=== PATIENT | male | born 1965 | race Caucasian/White ===

== ENCOUNTER 2017-09-12 21:22 | Emergency (ER) | payer OTHER ==
[2017-09-12 21:29] VITALS: BP 145/93; PULSE 66; RESP 18; TEMP 98.2
[2017-09-12] MEDS ORDERED: DIPH,PERTUS(ACELL)TETVAC-LF 0.5 ML VIAL IM ONE (21:55)
--- NOTE | 2017-09-12 21:59 | ED ---
Wound/Laceration HPI - General Chief Complaint: Wound/Laceration Stated Complaint: fish hook in hands Time Seen by Provider: 09/12/17 21:55 Source: patient, RN notes reviewed, old records reviewed Mode of arrival: ambulatory Limitations: physical limitation - History of Present Illness Initial Comments: Patient's 52-year-old male chief complaint of fishhook within the both of his hands. Patient reports that he was trying to fish and the fishhook caught within the right thenar erythematous as well as the left second digit. Patient states that he could not remove it himself. Patient denies any other symptoms. His tetanus shot is not up-to-date. - Related Data Home Medications Medication Instructions Recorded Confirmed Hydrocodone/Acetaminophen [[place] 1 tab PO Q6H PRN 09/12/17 09/12/17 10-325] Lisinopril [Zestril] 10 mg PO DAILY 09/12/17 09/12/17 Previous Rx's Medication Instructions Recorded Sulfamethoxazole/Trimethoprim 1 each PO BID #20 tablet 09/12/17 [Bactrim DS 800-160 mg] Allergies Allergy/AdvReac Type Severity Reaction Status Date / Time Penicillins Allergy Anaphylaxis Verified 09/12/17 21:29 Review of Systems ROS Statement: Those systems with pertinent positive or pertinent negative responses have been documented in the HPI. ROS Other: All systems not noted in ROS Statement are negative. Past Medical History Past Medical History: Hyperlipidemia, Hypertension History of Any Multi-Drug Resistant Organisms: None Reported Additional Past Surgical History / Comment(s): right thigh Past Psychological History: No Psychological Hx Reported Smoking Status: Current every day smoker Past Alcohol Use History: Rare Past Drug Use History: None Reported General Exam - General Exam Comments Initial Comments: This patient's 52-year-old male. Alert and oriented. No significant distress. Limitations: physical limitation General appearance: alert, in no apparent distress Head exam: Present: atraumatic, normocephalic, normal inspection Eye exam: Present: normal appearance, PERRL, EOMI. Absent: scleral icterus, conjunctival injection, periorbital swelling ENT exam: Present: normal exam, mucous membranes moist Neck exam: Present: normal inspection. Absent: tenderness, meningismus, lymphadenopathy Respiratory exam: Present: normal lung sounds bilaterally. Absent: respiratory distress, wheezes, rales, rhonchi, stridor Cardiovascular Exam: Present: regular rate, normal rhythm, normal heart sounds. Absent: systolic murmur, diastolic murmur, rubs, gallop, clicks Right Hand L/R Front: 1 - other (fishhook) 2 - other (fishook) Neuro motor exam: Present: thumb opposition intact, thumb IP flexion intact, thumb adduction intact, fingers 2-5 abduction intact Neurosensory exam: Present: 2-point discrimination, radial nerve intact, ulnar nerve intact, median nerve intact Vascular: Present: normal capillary refill Neurological exam: Present: alert, oriented X3, CN II-XII intact Psychiatric exam: Present: normal affect, normal mood Skin exam: Present: warm, dry, intact, normal color. Absent: rash Course Vital Signs 09/12/17 21:25 Temperature 98.2 F Pulse Rate 66 Respiratory 18 Rate Blood Pressure 145/93 O2 Sat by Pulse 99 Oximetry Medical Decision Making - Medical Decision Making 42-year-old male presents raise or tingling of fishhook in both of his hands. It is a 3 pronged fish hook. One is with th right thenar eminence of the seconds in the left second digit. I a cleanse the hands with Betadine. Instilled lidocaine in the area. There able to do through and through method and clip off the end of the marko. We did repeat an x-ray after the fishhook was removed and both hands. No evidence of retained foreign body or bony normalities. I will put the Patient on antibiotics for infection prevention. Discussed using warm soaks. I also discussed keeping the Patient a tetanus shot. All questions answered as were discussed. - Radiology Data Radiology results: pending, image reviewed Patient had x-rays on inserting foreign body. No evidence of fracture. Disposition Clinical Impression: Ladd injury to finger Disposition: HOME SELF-CARE Condition: Good Instructions: Puncture Wound (ED) Additional Instructions: Monitor for any infection. Take antibiotics as prescribed. Patient should soak hands frequently. Prescriptions: Sulfamethoxazole/Trimethoprim [Bactrim DS 800-160 mg] 1 each PO BID #20 tablet Is patient prescribed a controlled substance at d/c from ED?: No When asked, does pt state using other controlled substances?: No If prescribed controlled substance>3 days was MAPS reviewed?: No If opioid is for acute pain is fill amount 7 days or less?: No If Rx opioid, was Start Talking consent form obtained?: No Referrals: Kai Ibarra Jr, [Primary Care Provider] - 1-2 days Time of Disposition: 21:56
--- NOTE | 2017-09-12 23:09 | XR ---
EXAMINATION TYPE: XR hand limited bilateral DATE OF EXAM: 09/12/2017 COMPARISON: NONE HISTORY: Hand pain. [place] in both hands. TECHNIQUE: 3 views each hand FINDINGS: I see no fracture nor dislocation. Joint spaces are normal. There are no erosions. There is no sign of radiopaque foreign body. IMPRESSION: Negative bilateral hand exam. No evidence of foreign body. Minimal spurring noted at the right third MP joint.
== END 2017-09-12 22:29 | disposition home or self-care (01) ==
LOC: EC 21:22
DX: S69.91XA Unspecified injury of right wrist, hand and finger(s), initial encounter (principal); S69.92XA Unspecified injury of left wrist, hand and finger(s), initial encounter; I10 Essential (primary) hypertension; F17.200 Nicotine dependence, unspecified, uncomplicated; Z79.899 Other long term (current) drug therapy; Z88.0 Allergy status to penicillin; Z23 Encounter for immunization; W22.8XXA Striking against or struck by other objects, initial encounter; Y93.89 Activity, other specified; Y92.89 Other specified places as the place of occurrence of the external cause
CPT/HCPCS: 90471; 90715; 99284

== ENCOUNTER → 2017-12-03 | Outpatient (CLI) | payer OTHER ==
--- NOTE | 2017-12-03 14:18 | MR ---
EXAMINATION TYPE: MR knee RT wo con DATE OF EXAM: 12/03/2017 COMPARISON: X-ray 11/25/2017 HISTORY: Right knee pain TECHNIQUE: Multiplanar, multisequence imaging of the right knee is performed without IV contrast. FINDINGS: MEDIAL MENISCUS: There is PseudoExtrusion of the medial meniscus with grade 3 abnormal signal involvi ng the body and posterior horn compatible with meniscal tear. LATERAL MENISCUS: There is linear abnormal signal involving the posterior horn extending to the artic ular surface compatible simple linear tear. CRUCIATE LIGAMENTS: Posterior cruciate ligament has a normal appearance. The anterior cruciate ligame nt is not visualized correlate for history of previous ACL tear. COLLATERAL LIGAMENTS: The medial collateral ligament and lateral collateral ligament complex are inta ct. There is a grade 1 MCL sprain. EXTENSOR MECHANISM: Visualized quadriceps and patellar tendons are intact. EFFUSION: There is a small amount of fluid in the suprapatellar bursa. There is diffuse abnormal sig nal involving the infrapatellar Hoffa fat pad. A rounded area of abnormal signal suggest a osseous lo ose body. Measures approximately 1.6 cm and is believed to be present on the outside x-ray submitted. . POPLITEAL CYST: There is a 1.7 x 1 x 5 cm popliteal fossa cyst.. TRICOMPARTMENT SPACES: There is marked narrowing of the joint spaces of the medial and lateral compar tment with most marked findings seen involving the medial compartment. Hypertrophic spurring is noted . Marrow edema involving the medial and lateral tibial plateau likely is reactive secondary to arthro alyse. There is loss of articular cartilage and thinning of both the medial and lateral femoral artic ular surface. This likely is post arthritic. BONE MARROW SIGNAL: Signal alteration involving the medial and lateral tibial plateaus likely is reac tive secondary to post arthritic changes. IMPRESSION: 1. Severe osteoarthritis with chondromalacia involving the medial and lateral femoral articular carti dyllan. 2. PseudoExtrusion of the medial meniscus with complex tear involving the body and posterior horn lik arnoldo degenerative. 3. Simple linear tear posterior horn lateral meniscus. 4. Nonvisualization of the ACL correlate for chronic ACL tear. 5. Diffuse edema within Hoffa's fat pad with a 1.6 cm area of abnormal signal which has an oval confi guration and suspicious for a oval ossified density or loose body. 6. Grade 1 MCL sprain. 7. 1.7 x 1 x 5 cm popliteal fossa cyst
== END | disposition home or self-care (01) ==
LOC: RADMRIMAIN 11:45
PROVIDERS: ATTEND Orthopaedic Surgery
DX: M17.11 Unilateral primary osteoarthritis, right knee (principal); S83.231A Complex tear of medial meniscus, current injury, right knee, initial encounter; S83.281A Other tear of lateral meniscus, current injury, right knee, initial encounter; S83.411A Sprain of medial collateral ligament of right knee, initial encounter; M94.261 Chondromalacia, right knee

== ENCOUNTER 2018-03-10 07:01 | Day surgery (SDC) | payer OTHER ==
[2018-03-07 15:05] VITALS: BMI 24.2
--- NOTE | 2018-03-09 16:19 | HP ---
HISTORY AND PHYSICAL DATE OF SURGERY: 03/10/2018 Humphrey Elmore is a 53-year-old patient seen with progressive right knee pain. We discussed treatment options. He elected to proceed with right knee arthroscopy. Consent was obtained. PAST MEDICAL HISTORY: Hypertension, hyperlipidemia. PAST SURGICAL HISTORY: Noncontributory. DAILY MEDICATIONS: Antihypertensive. ALLERGIES: NONE. SOCIAL HISTORY: Smokes one pack of cigarettes daily. PHYSICAL EVALUATION OF THE RIGHT KNEE: Range of motion is negative 2/3 to 110 degrees. Mild effusion. Tenderness, medial joint line. Tenderness, lateral joint line. Positive medial Sania's. Positive lateral Sania's. Ligaments stable. Hip rotation without pain. Distal neurovascular exam is intact. RIGHT KNEE RADIOGRAPHS: Right knee radiographs revealed moderate osteoarthritic changes. An MRI of the right knee revealed medial and lateral meniscal tears as well as osteoarthritic changes. IMPRESSION: Internal derangement of right knee with medial and lateral meniscal tears. PLAN: Right knee arthroscopy with partial meniscectomy and debridement. MMODL / IJN: [id number] /
[~2018-03-10 07:01] MED LIST: CLINDAMYCIN 900 MG in DEXTROSE 5% IN WATER 50 ML IVPB ONE; DEXAMETHASONE SOD PHOSPHATE 10 MG/ML 1 ML VIAL IV ONE; LACTATED RINGERS 1,000 ML IV SCH; LIDOCAINE 1% 20 ML VIAL (10MG/ML) FOR IV START INTRADERMA PRN; ONDANSETRON 4 MG/2 ML VIAL IVP ONE; SCOPOLAMINE 1.5MG/72HR PATCH TRANSDERM ONE
[2018-03-10] MEDS ORDERED: MIDAZOLAM 2 MG/2 ML VIAL IV ONE (07:55)
[2018-03-10] MEDS ORDERED: MIDAZOLAM 2 MG/2 ML VIAL ONE (08:23)
[2018-03-10] MEDS ORDERED: SUCCINYLCHOLINE CHLORIDE 100 MG/5 ML SYR IV ONE (08:23)
[2018-03-10] MEDS ORDERED: LIDOCAINE 1% INJ 10MG/ML (20 ML MDV) ONE (08:23)
[2018-03-10] MEDS ORDERED: PROPOFOL 10 MG/ML 20 ML VIAL IV ONE (08:23)
[2018-03-10] MEDS ORDERED: fentaNYL (PF) 50 MCG/ML 2 ML AMP ONE (08:23)
[2018-03-10] MEDS ORDERED: BUPIVACAIN-EPI 0.25%-1:200,000 30 ML VIAL INTRAARTIC ONE ×2 (08:30→08:52)
--- NOTE | 2018-03-10 09:12 | P.OP ---
Date of Procedure: 03/10/18 Preoperative Diagnosis: Internal derangement right knee Postoperative Diagnosis: 1. Tear medial meniscus right knee 2. 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 Reactive synovitis medial, lateral and suprapatellar compartments right knee Procedure(s) Performed: 1. Arthroscopic partial medial meniscectomy right knee 2. Arthroscopic chondroplasty medial tibial plateau right knee 3. Arthroscopic partial synovectomy medial, lateral and suprapatellar compartments right knee Anesthesia: ANTHONYA, local Surgeon: Salvatore Wen Estimated Blood Loss (ml): 5 Pathology: none sent Condition: stable Disposition: PACU Indications for Procedure: 53-year-old patient seen with progressive right knee pain. After treatment options were discussed, he elected to proceed with arthroscopy. Operative Findings: see description of procedure Description of Procedure: Patient was taken to the operative suite. Patient underwent a general anesthetic by the department of anesthesia. Patient was given preoperative antibiotics. The right lower extremity was placed in a well-padded arthroscopic leg joyner. The right leg was prepped and draped in the normal sterile orthopedic fashion. A lateral parapatellar and suprapatellar incision was made. Trochars were inserted. Arthroscopy was initiated. Suprapatellar pouch revealed diffuse thick reactive synovitis. The patellofemoral joint appeared to articulate congruently. There was no significant chondromalacia present. The scope was guided into the medial gutter. No loose bodies or plica were identified. The scope was then guided into the medial compartment. A medial parapatellar incision was made. Trocar inserted followed by probe. There was a complex tear involving the posterior horn of the medial meniscus. There was a grade 4 chondromalacia of the tibial plateau in that area with some exposed bone centrally. There was thick reactive synovitis anteriorly. I performed a partial medial meniscectomy down to stable tissue. I performed a chondroplasty of the tibial plateau down to stable tissue. I performed a partial synovectomy decompressing that synovitis. The residual meniscus was stable. Scope and probe were then guided into the intercondylar notch. Cruciates were identified, probed and found to be stable. The scope and probe were then guided into lateral compartment. There was some superficial fraying of the posterior horn lateral meniscus. There was thick reactive synovitis anteriorly. There were grade 3 chondromalacia changes of the lateral compartment with no osteochondral tears present. I debrided that superficial fraying of the lateral meniscus. I performed a partial synovectomy decompressing the reactive synovitis anteriorly and lateral compartment. The scope was in guided back into the suprapatellar compartment. I introduced a motorized shaver into the super patellar compartment. I debrided some piecemeal fragments of meniscus I encountered. I performed a partial synovectomy decompressing the reactive synovitis there. There was good decompression of the synovitis and suprapatellar compartment. I took one more look around the entire knee, no residual debris. Instruments were now removed from the joint. The joint was infiltrated with .25% Marcaine. Steri-Strips were applied to the portal sites. Sterile dressings were applied. The patient was placed into a JANES hose. No tourniquet was utilized. The patient was awakened, transferred to a bed and taken to recovery stable satisfactory condition.
[2018-03-10 09:15] VITALS: TEMP 97.1
[2018-03-10] MEDS: HYDROmorphone 0.5 MG/0.5 ML SYRINGE IVP PRN ×2 (09:17→09:31)
[2018-03-10] MEDS ORDERED: KETOROLAC 30 MG/ML 1 ML VIAL IVP ONE (09:48)
[2018-03-10 10:18] VITALS: BP 125/83; PULSE 73; RESP 16
[2018-03-10] MEDS ORDERED: HYDROcodone/APAP 5-325MG 1 EACH TAB PO ONE (10:18)
== END 2018-03-10 10:52 | disposition home or self-care (01) ==
LOC: OR 07:01
PROVIDERS: ATTEND Orthopaedic Surgery
DX: S83.241A Other tear of medial meniscus, current injury, right knee, initial encounter (principal); X58.XXXA Exposure to other specified factors, initial encounter; M94.261 Chondromalacia, right knee; M65.861 Other synovitis and tenosynovitis, right lower leg; E78.5 Hyperlipidemia, unspecified; I10 Essential (primary) hypertension; E78.00 Pure hypercholesterolemia, unspecified; Z88.2 Allergy status to sulfonamides; F17.210 Nicotine dependence, cigarettes, uncomplicated; Z79.891 Long term (current) use of opiate analgesic; Z79.899 Other long term (current) drug therapy; Z88.0 Allergy status to penicillin
CPT/HCPCS: 29881; J2250; J1100; J2405; J2001; J3010; J1885; J0330; J2704; J1170

== ENCOUNTER → 2024-07-06 | Outpatient (CLI) | payer OTHER ==
--- NOTE | 2024-07-07 12:37 | CTL ---
EXAMINATION TYPE: CT Low Dose Lung DATE OF EXAM ORDERED: 07/06/2024 COMPARISON: Prior chest x-ray June 28, 2024 CLINICAL INDICATION: Male, 59 years old with history of Z12.2 SCREENING, Z87.891 NICOTINE DEPENDENCE; PH[facility], Lung screening for nicotine dependence of 1ppd x25 years, quit smoking 2021., Lung cancer scree owen, History of Smoking/tobacco use. TECHNIQUE: Low dose computed tomography scan was performed through the chest at 1 mm thick sections a nd reconstructed images in multiple planes at 1 mm and [address] DLP: 96.[address] CTDI: 2.6 mGy Automated exposure control for dose reduction was used. CT DIAGNOSTIC QUALITY: Satisfactory FINDINGS: Nodules: None. LUNGS: COPD: Severity: Mild Fibrosis: Severity: None Lymph nodes: None Other findings: None RIGHT PLEURAL SPACE: Effusion: None Calcification: None Thickening: None Pneumothorax: None LEFT PLEURAL SPACE: Effusion: None Calcification: None Thickening: None Pneumothorax: None HEART: Heart Size: Normal Coronary Calcification: None Pericardial Effusion: None OTHER FINDINGS: Upper abdomen: None Bony thorax: Bridging osteophytes in the mid to lower thoracic spine. Supraclavicular region: None Other: None IMPRESSION: No nodules. CT LUNG RAD AND CT CHEST RECOMMENDATION: Lung-Rad 1 Negative: Continue annual screening with LDCT in 12 months. S Modifier (other clinically significant findings): None [facility], , 07/07/2024 12:34 PM
== END | disposition home or self-care (01) ==
LOC: RADCTMAIN 15:14
PROVIDERS: ATTEND Internal Medicine Critical Care Medicine
DX: Z12.2 Encounter for screening for malignant neoplasm of respiratory organs (principal); Z87.891 Personal history of nicotine dependence
CPT/HCPCS: 71271